=== PATIENT | male | born 1945 | race Caucasian/White ===

== ENCOUNTER → 2021-09-22 | Outpatient (CLI) | payer MEDICARE ==
[~2021-09-22] MED LIST: IOPAMIDOL 370 MG/ML 100 ML INFUS..BTL INJ ONE; SODIUM CHLORIDE 0.9% 100 ML ONE
[2021-09-22 13:34] LABS: CREATININE, SERUM 0.92 mg/dL (0.72-1.25)
== END ==
LOC: CT 12:33
PROVIDERS: ATTEND Thoracic Surgery (Cardiothoracic Vascular Surgery)
DX: R42 Dizziness and giddiness (principal); I65.22 Occlusion and stenosis of left carotid artery; H53.8 Other visual disturbances; R51.9 Headache, unspecified
CPT/HCPCS: 36415; 70498; 82565; 84520; J7050; Q9967